=== PATIENT | male | born 1960 | race American Indian/Alaskan Native ===

== ENCOUNTER 2021-10-27 10:23 | Outpatient (CLI) | payer OTHER ==
--- NOTE | 2021-10-27 11:29 | Magnetic Resonance Report ---
MRI BRAIN WITHOUT CONTRAST INDICATION / CLINICAL INFORMATION: HEADACHES. TECHNIQUE: Multiplanar, multisequence MR images of the brain were obtained. COMPARISON: None available. FINDINGS: BRAIN / INTRACRANIAL CONTENTS: No acute ischemia, acute hemorrhage, mass effect, midline shift, or hy drocephalus. No chronic infarct or significant atrophy. No significant demyelinating changes. CRANIOCERVICAL JUNCTION: No significant abnormality. VASCULAR FLOW-VOIDS: No significant abnormality. ORBITS: No significant abnormality of visualized orbits. SINUSES / MASTOIDS: No significant abnormality of visualized sinuses and mastoid air cells. ADDITIONAL FINDINGS: None. IMPRESSION: 1. No acute findings or findings to explain the patient's symptoms. Signer Name: José Miguel Gamez MD Signed: 10/27/2021 11:25 AM Workstation Name: [id number]
== END 2021-10-27 10:24 | disposition home or self-care (01) ==
LOC: MRI 10:23
PROVIDERS: ATTEND Family Medicine Adult Medicine
DX: R51.9 Headache, unspecified (principal)
CPT/HCPCS: 70551